=== PATIENT | male | born 1990 | race Caucasian/White ===

== ENCOUNTER 2018-04-18 17:20 | Emergency (ER) | payer OTHER ==
[2018-04-18 17:58] VITALS: BP 118/82; PULSE 96; RESP 20; TEMP 98.4
--- NOTE | 2018-04-18 20:05 | ED ---
Fall HPI - General Chief Complaint: Fall Stated Complaint: Fell downstairs Time Seen by Provider: 04/18/18 19:37 Source: patient Mode of arrival: ambulatory - History of Present Illness Initial Comments: 27 year-old male patient presents to the emergency department today for evaluation after falling down a flight of stairs today. Patient states he was in a residential home and fell from the top stair down to the bottom. Patient states he did strike his head. He denies any loss of consciousness with the fall. Denies any injury. States he is currently pain-free. States he initially did have a minor headache with some dizziness that lasted for approximately 30 minutes. States that his headache has now resolved. Denies any nausea or vomiting. Denies any numbness, tingling, dizziness, or weakness. Patient denies any neck pain, back pain, chest pain, shortness of breath, abdominal pain, nausea, vomiting, or difficulties with bowel movements or urination. - Related Data Home Medications Medication Instructions Recorded Confirmed No Known Home Medications 04/18/18 04/18/18 Allergies Allergy/AdvReac Type Severity Reaction Status Date / Time Penicillins Allergy Anaphylaxis Verified 04/18/18 20:05 Review of Systems ROS Statement: Those systems with pertinent positive or pertinent negative responses have been documented in the HPI. ROS Other: All systems not noted in ROS Statement are negative. Past Medical History Past Medical History: No Reported History History of Any Multi-Drug Resistant Organisms: None Reported Past Surgical History: No Surgical Hx Reported Past Psychological History: ADD/ADHD, PTSD Smoking Status: Current every day smoker Past Alcohol Use History: Abuse Past Drug Use History: Marijuana General Exam Limitations: no limitations General appearance: alert, in no apparent distress, other (This is a well- developed, well-nourished adult male patient in no acute distress. Vital signs upon presentation are temperature 98.4F, pulse 96, respirations 20, blood pressure 118/82, pulse ox 100% on room air.) Head exam: Present: atraumatic, normocephalic, normal inspection Eye exam: Present: normal appearance, PERRL, EOMI. Absent: scleral icterus, conjunctival injection, nystagmus, periorbital swelling ENT exam: Present: normal exam, normal oropharynx, mucous membranes moist Neck exam: Present: normal inspection, full ROM, other (Nontender, no step-off, no deformity to firm midline palpation of the posterior cervical spine. Full range of motion without pain or limitation.). Absent: tenderness, meningismus, lymphadenopathy Respiratory exam: Present: normal lung sounds bilaterally. Absent: respiratory distress, wheezes, rales, rhonchi, stridor Cardiovascular Exam: Present: regular rate, normal rhythm, normal heart sounds. Absent: systolic murmur, diastolic murmur, rubs, gallop, clicks GI/Abdominal exam: Present: soft, normal bowel sounds. Absent: distended, tenderness, guarding, rebound, rigid Back exam: Present: normal inspection, other (Nontender, no step-off, no deformity to firm midline palpation of the thoracic and lumbar vertebrae. Full range of motion without pain or limitation.). Absent: vertebral tenderness Neurological exam: Present: alert, oriented X3, CN II-XII intact, other (GCS 15) Psychiatric exam: Present: normal affect, normal mood Skin exam: Present: warm, dry, intact, normal color. Absent: rash Course Vital Signs 04/18/18 17:55 Temperature 98.4 F Pulse Rate 96 Respiratory 20 Rate Blood Pressure 118/82 O2 Sat by Pulse 100 Oximetry Medical Decision Making - Medical Decision Making 27-year-old male patient presented to the emergency department today for evaluation after falling down a flight of stairs today. At time of history and physical exam patient states he is not having any symptoms. Physical examination was unremarkable. Patient had no spinal tenderness, he is alert and oriented, neurologic evaluation was normal. We did talk about possible concussion given his headache and dizziness after the fall. He does have comfortable being discharged home. He was educated regarding signs or symptoms of worsening head injury. Is instructed to follow-up with his primary care physician for recheck in 1-2 days. Return parameters discussed in detail. He verbalizes understanding and agrees with this plan. Disposition Clinical Impression: Head injury Disposition: HOME SELF-CARE Condition: Good Instructions: Head Injury (ED), Fall Prevention (ED) Additional Instructions: Monitor for signs or symptoms of worsening head injury including severe headaches, vomiting, dizziness, weakness, or any other abnormal behavior. Follow-up with your primary care physician for recheck in 1-2 days. Return here immediately for any new, worsening, or concerning symptoms. Is patient prescribed a controlled substance at d/c from ED?: No Referrals: None,Stated [Primary Care Provider] - 1-2 days Time of Disposition: 20:05
== END 2018-04-18 20:30 | disposition home or self-care (01) ==
LOC: EC 17:20
DX: S09.90XA Unspecified injury of head, initial encounter (principal); R40.2412 Glasgow coma scale score 13-15, at arrival to emergency department; F17.200 Nicotine dependence, unspecified, uncomplicated; Z88.0 Allergy status to penicillin; W10.9XXA Fall (on) (from) unspecified stairs and steps, initial encounter; Y92.009 Unspecified place in unspecified non-institutional (private) residence as the place of occurrence of the external cause
CPT/HCPCS: 99283

== ENCOUNTER 2019-06-13 13:18 | Emergency (ER) | payer OTHER ==
[2019-06-13 13:28] VITALS: BP 114/76; PULSE 79; RESP 18; TEMP 98.2
--- NOTE | 2019-06-13 14:08 | ED ---
Upper Extremity HPI - General Chief Complaint: Extremity Injury, Upper Stated Complaint: Finger injury Time Seen by Provider: 06/13/19 13:32 Source: patient Mode of arrival: ambulatory - History of Present Illness Initial Comments: Patient is a 29-year-old male presenting to emergency Department with complaints of pain in his left ring finger 3 days. Patient states he is working on a car and got his left ring finger pinched in between 2 metal pieces. Patient states he's been having increase in pain and swelling from the area and decided to have it checked. Patient reports no prior history of injuries to the left fingers or hands. No other complaints at this time. Upon arrival to ER vital signs are stable, afebrile. - Related Data Home Medications Medication Instructions Recorded Confirmed No Known Home Medications 04/18/18 04/18/18 Allergies Allergy/AdvReac Type Severity Reaction Status Date / Time Penicillins Allergy Anaphylaxis Verified 06/13/19 13:28 Review of Systems ROS Statement: Those systems with pertinent positive or pertinent negative responses have been documented in the HPI. ROS Other: All systems not noted in ROS Statement are negative. Past Medical History Past Medical History: No Reported History History of Any Multi-Drug Resistant Organisms: None Reported Past Surgical History: No Surgical Hx Reported Past Psychological History: ADD/ADHD, PTSD Smoking Status: Former smoker Past Alcohol Use History: Abuse Past Drug Use History: Marijuana General Exam - General Exam Comments Initial Comments: GENERAL: Well-appearing, well-nourished and in no acute distress. HEAD: Atraumatic, normocephalic. EYES: Pupils equal round and reactive to light, extraocular movements intact, sclera anicteric, conjunctiva are normal. ENT: TMs normal, nares patent, oropharynx clear without exudates. Moist mucous membranes. NECK: Normal range of motion, supple without lymphadenopathy or JVD. LUNGS: Breath sounds clear to auscultation bilaterally and equal. No wheezes rales or rhonchi. HEART: Regular rate and rhythm without murmurs, rubs or gallops. ABDOMEN: Soft, nontender, normoactive bowel sounds. No guarding, no rebound. No masses appreciated. : Deferred EXTREMITIES: Pain with palpation of the left distal ring finger. There is some erythema and edema. Neurovascular intact. Normal range of motion. No clubbing or cyanosis. NEUROLOGICAL: Cranial nerves II through XII grossly intact. Normal speech, normal gait. PSYCH: Normal mood, normal affect. SKIN: Warm, Dry, normal turgor, no rashes or lesions noted. Course Vital Signs 06/13/19 13:25 Temperature 98.2 F Pulse Rate 79 Respiratory 18 Rate Blood Pressure 114/76 O2 Sat by Pulse 97 Oximetry Medical Decision Making - Medical Decision Making Patient is a 29-year-old male presenting with pain, swelling, erythema to the left distal ring finger x 2 days. Patient states he got his finger caught between 2 metal pieces on a car he was trying to fix. There is no lacerations to the finger. X-rays of the left hand reveal no acute fractures dislocations. Was discussed with patient this is more likely a paronychia or contusion injury. Patient will do warm soaks. Patient is stable for discharge. Return ezra eters were discussed with patient he verbalizes understanding. Disposition Clinical Impression: Pain in left finger(s) Disposition: HOME SELF-CARE Condition: Stable Instructions (If sedation given, give patient instructions): Swollen Joint (ED) Additional Instructions: Please return to the Emergency Department if symptoms worsen or any other concerns. Use warm soaks as discussed. Elevation. Is patient prescribed a controlled substance at d/c from ED?: No Referrals: None,Stated [Primary Care Provider] - 1-2 days
--- NOTE | 2019-06-13 14:21 | XR ---
EXAMINATION TYPE: XR hand complete LT DATE OF EXAM: 06/13/2019 COMPARISON: None HISTORY: Crush injury fourth digit TECHNIQUE: 3 view left hand FINDINGS: No acute fractures or dislocations are evident. There is diffuse soft tissue swelling of th e distal fourth digit. Joint spaces appear preserved. IMPRESSION: 1. No acute osseous abnormality. 2. Soft tissue swelling distal fourth digit 3. Follow up exams can be performed 7-10 days from acute trauma for continued pain.
== END 2019-06-13 14:36 | disposition home or self-care (01) ==
LOC: EC 13:18
DX: M79.645 Pain in left finger(s) (principal); L53.9 Erythematous condition, unspecified; R60.0 Localized edema; Z87.891 Personal history of nicotine dependence; Z88.0 Allergy status to penicillin; W23.0XXA Caught, crushed, jammed, or pinched between moving objects, initial encounter; Y93.89 Activity, other specified; Y92.810 Car as the place of occurrence of the external cause
CPT/HCPCS: 99283